=== PATIENT | female | born 1960 | race Caucasian/White ===

== ENCOUNTER 2017-12-12 19:33 | Emergency (ER) | payer SELFPAY ==
[~2017-12-12] VITALS: Ht 172.7 cm; Wt 63.5 kg
--- NOTE | 2017-12-12 19:41 | NUR ---
DR. LEON AT BEDSIDE FOR MSE.
--- NOTE | 2017-12-12 20:00 | NUR ---
CONSENT SIGNED BY PATIENT FOR CLOSED REDUTION OF LEFT ELBOW. FRACTURED DISLOCATION WITH PROCEDURAL SEDATION.
--- NOTE | 2017-12-12 20:12 | NUR ---
FENTANYL 100MCG IVP GIVEN.
[2017-12-12] MEDS ORDERED: FENTANYL CITRATE 100 MCG/2 ML AMPUL ONE (20:14)
[2017-12-12] MEDS ORDERED: ETOMIDATE 20 MG/10 ML VIAL ONE (20:15)
[2017-12-12] MEDS ORDERED: FENTANYL CITRATE 100 MCG/2 ML AMPUL IV ONE (20:15)
[2017-12-12] MEDS ORDERED: ETOMIDATE 20 MG/10 ML VIAL IV ONE (20:15)
--- NOTE | 2017-12-12 20:20 | NUR ---
TIME OUT FOR PROCEDURE DONE AT BEDSIDE WITH MD, RN AND RT.
--- NOTE | 2017-12-12 20:22 | NUR ---
PT PLACED ON 15L NRB MASK. AMIDATE 10MG/5ML IVP GIVEN. PROCEUDRE DONE BY DR. LEON AT THIS TIME. PT PLACED IN SPLINT AND SLING.
--- NOTE | 2017-12-12 20:40 | NUR ---
PATIENT IS AWAKE/ALERT AT THIS TIME. PLACED ON 2L NC. DENIES ANY SYMPTOMS.
[2017-12-12] MEDS ORDERED: ONDANSETRON 4 MG/2 ML VIAL ONE (21:06)
[2017-12-12] MEDS ORDERED: ONDANSETRON IV *ER 4 MG/2 ML VIAL IV ONE (21:15)
--- NOTE | 2017-12-12 21:34 | NUR ---
PATIENT IS AWAKE AND ALERT, STANDING AT BEDSIDE AT THIS TIME. DENIES ANY DIZZINESS, PAIN, NAUSEA OR VOMITING. FLUID CHALLENGE DONE, TOLERATED FLUIDS WELL.
--- NOTE | 2017-12-12 21:41 | NUR ---
Patient discharged to home in stable conditon. Written and verbal after care instructions given. Patient verbalizes understanding of instructions. PATIENT LEFT WITH STABLE GAIT.
[2017-12-12 21:42] VITALS: BP 147/84
== END 2017-12-12 21:42 | disposition home or self-care (01) ==
LOC: ER 19:33
DX: S52.002A Unspecified fracture of upper end of left ulna, initial encounter for closed fracture (principal); S53.005A Unspecified dislocation of left radial head, initial encounter; W18.30XA Fall on same level, unspecified, initial encounter; Y93.89 Activity, other specified; Y92.89 Other specified places as the place of occurrence of the external cause; Y99.8 Other external cause status
CPT/HCPCS: 24655; 73070; 73080; 96374; 96375; 99152; 99285; A4663; J2405; J3010; J3490; J7030